=== PATIENT | male | born 1935 | race Caucasian/White ===

== ENCOUNTER 2017-04-23 16:41 | Inpatient (IN) | payer MEDICARE, OTHER ==
[~2017-04-23] VITALS: Ht 175.3 cm; Wt 96.8 kg
[~2017-04-23 16:41] MED LIST: ASPI-535 PO; BIMA2.5D4; BRIM10DR2; CRES10; FURO40TA4 PO; INSU100V19; LOSA100T47
[2017-04-23] MEDS ORDERED: ALBUTEROL 0.5% (NEB) 2.5 MG/0.5 ML AMP INH STA (19:19)
[2017-04-23 19:30] LABS: ADD SCAN DIFF NO
[2017-04-23] MEDS ORDERED: LEVOFLOXACIN 750MG/D5W (PMX) 150 ML IVPB ONE (19:30)
[2017-04-23] MEDS ORDERED: ASPIRIN 81 MG TAB PO ONE (19:30)
[2017-04-23] MEDS ORDERED: FUROSEMIDE 40 MG INJ IV ONE (19:30)
[2017-04-23 19:47] LABS: BASOPHIL # 0.1 10^3/ul (0.0-0.1); BASOPHILS % 0.6 % (0.0-2.0); EOSINOPHILS # 0.7 10^3/ul (0.0-0.5); EOSINOPHILS % 6.3 % (0.0-7.0); HEMATOCRIT 41.1 % (42.0-52.0); HEMOGLOBIN 12.8 g/dl (14.0-18.0); LYMPHOCYTES # 2.4 10^3/ul (0.8-2.9); LYMPHOCYTES % 22.9 % (15.0-51.0); MEAN CORPUSCULAR HGB CONC 31.1 g/dl (32.0-37.0); MEAN CORPUSCULAR VOLUME 102.8 fl (82.0-101.0); MEAN PLATELET VOLUME 12.9 fl (7.4-10.4); MONOCYTES % 9.2 % (0.0-11.0); NEUTROPHIL # 6.3 10^3/ul (1.6-7.5); NEUTROPHILS % 60.1 % (39.0-77.0); PLATELET COUNT 122 10^3/UL (140-415); WHITE BLOOD COUNT 10.5 10^3/ul (4.8-10.8)
[2017-04-23 20:04] LABS: ALANINE AMINOTRANSFERASE 34 IU/L (13-69); ALBUMIN 4.6 g/dl (3.3-4.9); ALBUMIN/GLOBULIN RATIO 1.21; ALKALINE PHOSPHATASE 28 IU/L (42-121); ANION GAP 17 (8-16); ASPARTATE AMINO TRANSFERASE 26 IU/L (15-46); BILIRUBIN,INDIRECT 0.4 mg/dl (0-1.1); BILIRUBIN,TOTAL 0.4 mg/dl (0.2-1.3); BLOOD UREA NITROGEN 57 mg/dl (7-20); CALCIUM 9.3 mg/dl (8.4-10.2); CARBON DIOXIDE 30 mmol/L (21-31); CHLORIDE 104 mmol/L (97-110); GLUCOSE 264 mg/dl (70-220); POTASSIUM 4.7 mmol/L (3.5-5.1); SODIUM 146 mmol/L (135-144); TOTAL PROTEIN 8.4 g/dl (6.1-8.1)
[2017-04-23 20:16] LABS: B-TYPE NATRIURETIC PEPTIDE 107 PG/ML (0-450)
[2017-04-23 20:16] LABS: ADD UMIC YES; UR ASCORBIC ACID NEGATIVE (NEGATIVE); UR BILIRUBIN (Dip) NEGATIVE (NEGATIVE); UR BLOOD (Dip) 1+ mg/dL (NEGATIVE); UR CLARITY CLEAR (CLEAR); UR COLOR STRAW (YELLOW); UR GLUCOSE (Dip) NEGATIVE (NEGATIVE); UR KETONES (Dip) NEGATIVE (NEGATIVE); UR LEUKOCYTE ESTERASE (Dip) NEGATIVE Leu/ul (NEGATIVE); UR NITRITE (Dip) NEGATIVE (NEGATIVE); UR RBC 2 /HPF (0-5); UR TOTAL PROTEIN (Dip) NEGATIVE (NEGATIVE); UR UROBILINOGEN (Dip) NEGATIVE (NEGATIVE)
[2017-04-23 20:22] LABS: TROPONIN-I < 0.012 ng/ml (0.00-0.12)
[2017-04-23 20:49] LABS: AADO2 Arterial 71.3 mmHg (7.0-24.0); Arterial Base Excess 1.1 mmol/L (-3.0-3); Arterial COHb 0.6 % (0.0-3.0); Arterial Fraction of Oxyhgb 94.1 % (93.0-99.0); Arterial HCO3 27.9 mmol/L (22.0-26.0); Arterial MetHb 0.2 % (0.0-1.5); Arterial Total Hemglobin 13.4 g/dl (12.0-18.0); MODE NASAL CANNULA
[2017-04-23] MEDS ORDERED: LATA2.5D2 BOTH EYES (21:22)
[2017-04-23] MEDS ORDERED: DORZ10DR22 BOTH EYES (21:23)
[2017-04-23] MEDS ORDERED: COMBIG5 BOTH EYES (21:23)
[2017-04-23] MEDS ORDERED: SPIR25TA PO (21:24)
[2017-04-23] MEDS ORDERED: ASPI-664 PO (21:27)
[2017-04-23] MEDS ORDERED: CRES10 PO (21:27)
[2017-04-23] MEDS ORDERED: LOSA1TAB20 PO (21:29)
[2017-04-23] MEDS ORDERED: METHYLPREDNISOLONE 125 MG INJ IV ONE (21:30)
[2017-04-23] MEDS ORDERED: LANT3I SC (21:31)
[2017-04-23] MEDS ORDERED: FURO40TA4 PO (21:32)
--- NOTE | 2017-04-23 21:38 | RADRPT ---
PROCEDURE: XR Chest. CLINICAL INDICATION: Cough. TECHNIQUE: Single frontal view of the chest was obtained. 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 I attempted to retrie ve views utilizing both the [employer] ([place]) and spoke with liz Gilbert technologgis who tried to hav e these uploaded. FINDINGS: The soft tissues are normal. There are degenerative osteophytes in the thoracic spine. There are c alcifications lateral to the humeral heads suspicious for calcific tendonitis involving both shoulde rs. The heart is enlarged. The cardiomediastinal silhouette and hilar structures are normal. The p ulmonary vasculature is equilibrated. There are vascular calcifications in the ectatic left-sided a aimee. There are increased interstitial markings in the perihilar areas and bases of the lungs. Ther e is slight thickening of the minor fissure. The costophrenic angles are normal. IMPRESSION: 1. Cardiomegaly with equilibration the pulmonary vasculature. 2. Increased interstitial markings in the lungs could be acute or chronic pain mild CHF should be c onsidered. 3. Spondylosis of the thoracic spine. 4. Atherosclerosis of the aortic arch. RPTAT:AAJJ Physician Misael Date Time Electronically viewed and signed by Physician Misael on 04/23/2017 21:38 ROHAN/
--- NOTE | 2017-04-23 22:04 | ERA ---
ER Documentation Chief Complaint Date/Time DATE: 04/23/17 TIME: 21:53 Chief Complaint Complains of a cough x 1week HPI 82-year-old man brought in by son for 1 week of cough, nasal congestion, rhinorrhea, shortness of breath. Was a longtime smoker and has a history of COPD. His younger family member has had similar URI symptoms this week. Patient states over the last couple weeks his lower extremities have been swelling as well, and he does have a history of pulmonary vascular congestion about a year ago. Patient has had no chest pain, no vomiting or diarrhea, no headache or blurry vision, no orthopnea or paroxysmal nocturnal dyspnea ROS All systems reviewed and are negative except as per history of present illness. Medications Home Meds Reported Medications Furosemide* (Furosemide*) 40 Mg Tablet, 40 MG PO DAILY, TAB 04/23/17 Insulin Glargine* (Lantus*) 100 Unit/Ml Soln, 42 UNIT SC QAM, #1 VIAL 04/23/17 Losartan-Hydrochlorothiazide (Losartan-HCTZ) 100-25 Mg Tab, 1 TAB PO DAILY, TAB 04/23/17 Aspirin* (Aspirin* EC) 81 Mg Tablet.dr, 81 MG PO DAILY, TAB 04/23/17 Rosuvastatin Calcium* (Crestor*) 10 Mg Tablet, 10 MG PO QHS, #30 TAB 04/23/17 Spironolactone* (Aldactone*) 25 Mg Tablet, 25 MG PO DAILY, #30 TAB 04/23/17 Brimonidine/Timolol* (Combigan*) 5 Ml Drops, 1 DROP BOTH EYES BID, BOTTLE 04/23/17 Dorzolamide-Timolol* (Cosopt*) 2%-0.5% - 10 Ml Soln, 1 DROP BOTH EYES BID, BOTTLE 04/23/17 Latanoprost (Latanoprost) 2.5 Ml Drops, 1 DROP BOTH EYES QHS, #1 BOTTLE 04/23/17 Discontinued Reported Medications Furosemide (Lasix) 40 Mg Tab, 40 MG PO EVERY OTHER DAY, TAB 12/25/13 Aspirin Ec (Aspir 81) 81 Mg Tablet.dr, 81 MG PO DAILY 12/25/13 Brimonidine/Timolol* (Combigan*) 10 Ml Drops 09/20/ Bimatoprost (Lumigan) 2.5 Ml Drops 09/20/10 Insulin Glargine,Hum.rec.anlog (Lantus) 100 U/Ml Vial 09/20/10 Losartan Potassium* (Cozaar*) 100 Mg Tablet 09/20/10 Rosuvastatin Calcium* (Crestor*) 10 Mg Tablet 09/20/10 Allergies Allergies: Coded Allergies: ceftriaxone sodium (Verified Allergy, Severe, 04/23/17) ITCHY RASH vancomycin (Verified Allergy, Severe, 04/23/17) REDNESS AND LOSS OF KIDNEY FUNCTION PMhx/Soc Hypertension, diabetes mellitus, hypercholesterolemia, chronic obstructive pulmonary disease, possible congestive heart failure History of Surgery: Yes (angioplasty, L LEG VEIN REMOVED, BILATERAL CATARACTS) Anesthesia Reaction: No Hx Neurological Disorder: No Hx Respiratory Disorders: Yes ( copd) Hx Cardiac Disorders: Yes (cad, mi in 1993, htn, hypercholesterolemia) Hx Psychiatric Problems: No Hx Miscellaneous Medical Probl: Yes (Dm,HTN,hyperlipidemia,CAD) Hx Alcohol Use: Yes (OCCASIONALLY) Hx Substance Use: No Hx Tobacco Use: No (former smoker; quit in 1993) Smoking Status: Former smoker FmHx Family History: No diabetes Physical Exam Vitals Vital Signs Date Time Temp Pulse Resp B/P Pulse Ox O2 Delivery O2 Flow Rate FiO2 04/23/17 21:46 72 16 138/69 95 Nasal Cannula 2.0 04/23/17 19:17 71 22 145/79 95 Nasal Cannula 2.0 04/23/17 19:15 69 26 93 Nasal Cannula 2.0 28 04/23/17 16:44 98.3 80 20 134/60 86 Physical Exam GENERAL: Well-developed, well-nourished, dyspneic, initially hypoxic, looks nontoxic in appearance, afebrile HEENT: Moist mucous membranes, pink conjunctiva, no cervical spine tenderness or step-off deformities, no goiter, no jaundice or icterus, extraocular movements intact without pain. No submandibular induration, and no pharyngeal erythema NEURO: Alert and oriented 3, cranial nerves II through XII intact bilaterally, pupils equal round reactive to light, no focal deficits or facial asymmetry, sensation intact distally Strength 5/5 in upper and lower extremities bilaterally CARDIAC: Regular rate and rhythm, no murmurs rubs or gallops LUNGS: Poor breath sounds bilaterally with right upper and lower lung crackles, mild wheezing, no stridor ABDOMEN: Soft nontender, no guarding, no rigidity, no rebound, no psoas sign no obturator sign. Normoactive bowel sounds SKIN: Warm and dry to touch, no abrasions, contusions, or hematomas, no lacerations, no ecchymosis, no target lesions, and without ulcers EXTREMITIES: No clubbing cyanosis, 2+ pitting edema in the lower extremities bilaterally, calves are bilaterally symmetrical, no Homans sign, no popliteal cord sign. Distal pulses equal and bilateral PSYCH: Normal affect without agitation or irritability Result Diagram: 04/23/17191404/23/171914 Results 24 hrs Laboratory Tests Test 04/23/17 19:15 04/23/17 19:19 04/23/17 19:56 White Blood Count 10.510^3/ul Red Blood Count 4.0010^6/ul Hemoglobin 12.8g/dl Hematocrit 41.1% Mean Corpuscular Volume 102.8fl Mean Corpuscular Hemoglobin 32.0pg Mean Corpuscular Hemoglobin Concent 31.1g/dl Red Cell Distribution Width 13.0% Platelet Count 77020^3/UL Mean Platelet Volume 12.9fl Neutrophils % 60.1% Lymphocytes % 22.9% Monocytes % 9.2% Eosinophils % 6.3% Basophils % 0.6% Nucleated Red Blood Cells % 0.0/100WBC Neutrophils # 6.310^3/ul Lymphocytes # 2.410^3/ul Monocytes # 1.010^3/ul Eosinophils # 0.710^3/ul Basophils # 0.110^3/ul Nucleated Red Blood Cells # 0.010^3/ul Sodium Level 146mmol/L Potassium Level 4.7mmol/L Chloride Level 104mmol/L Carbon Dioxide Level 30mmol/L Anion Gap 17 Blood Urea Nitrogen 57mg/dl Creatinine 2.10mg/dl Glucose Level 264mg/dl Calcium Level 9.3mg/dl Total Bilirubin 0.4mg/dl Direct Bilirubin 0.00mg/dl Indirect Bilirubin 0.4mg/dl Aspartate Amino Transf (AST/SGOT) 26IU/L Alanine Aminotransferase (ALT/SGPT) 34IU/L Alkaline Phosphatase 28IU/L Troponin I < 0.012ng/ml B-Type Natriuretic Peptide 107PG/ML Total Protein 8.4g/dl Albumin 4.6g/dl Globulin 3.80g/dl Albumin/Globulin Ratio 1.21 Lipase 123U/L Blood Gas Specimen Source Blood arterial Arterial Blood Date Drawn 04/23/2017 8:35:03 PM Arterial Blood pH (Temp corrected) 7.336 Arterial Blood pCO2 (Temp correct) 53.4mmhg Arterial Blood pO2 (Temp corrected) 79.9mmHG Arterial Blood HCO3 27.9mmol/L Arterial Blood Base Excess 1.1mmol/L Arterial Blood Oxygen Saturation 94.9mmHG Lux Test N/A Arterial Blood Gas Puncture Site Right Brachial Arterial Blood Carboxyhemoglobin 0.6% Arterial Blood Methemoglobin 0.2% Blood Gas A-a O2 Differential 71.3mmHg Oxyhemoglobin Percent 94.1% Total Hemoglobin 13.4g/dl Blood Gas Temperature 37.0C Blood Gas Actual Respiration Rate 24 Blood Gas Modality NASAL CANNULA FiO2 30.0% Blood Gas Critical Value Read Back Juan KIDD Blood Gas Notified Whom BL Blood Gas Notified Time 04/23/2017 8:49:24 PM Urine Color STRAW Urine Clarity CLEAR Urine pH 5.0 Urine Specific [place] 1.010 Urine Ketones NEGATIVEmg/dL Urine Nitrite NEGATIVEmg/dL Urine Bilirubin NEGATIVEmg/dL Urine Urobilinogen NEGATIVEmg/dL Urine Leukocyte Esterase NEGATIVELeu/ul Urine Microscopic RBC 2/HPF Urine Microscopic WBC 1/HPF Urine Hemoglobin 1+mg/dL Urine Glucose NEGATIVEmg/dL Urine Total Protein NEGATIVEmg/dl Current Medications Medications (Trade) Dose Ordered Sig/Linnette Route PRN Reason Start Time Stop Time Status Last Admin Dose Admin Furosemide (Lasix) 40 mg ONCE ONCE IV 04/23/17 19:30 04/23/17 19:31 DC 04/23/17 19:38 Aspirin 324 mg 324 mg ONCE ONCE PO 04/23/17 19:30 04/23/17 19:31 DC 04/23/17 19:38 Levofloxacin/ Dextrose (Levaquin 750 Mg/ D5W 150 ml (Pmx)) 150 ml @ 100 mls/hr ONCE ONCE IVPB 04/23/17 19:30 04/23/17 20:59 DC 04/23/17 19:38 Albuterol (Proventil 0.5% (Neb)) 10 mg ONCE STAT INH 04/23/17 19:19 04/23/17 19:22 DC 04/23/17 19:31 Methylprednisolone Sodium Succinate (Solu-Medrol) 125 mg ONCE ONCE IV 04/23/17 21:30 04/23/17 21:31 DC 04/23/17 21:46 Procedures/MDM IV line was established patient was placed on electric solderer rhythm strip revealed a sinus rhythm at about 70 bpm with upright P and T waves. Patient was afebrile. Blood and urine cultures have been ordered results are pending I will follow-up. For initial hypoxia patient was placed on low flow oxygen via nasal cannula with improvement in oxygen saturation. EKG performed, read by me revealed a normal sinus rhythm at 70 bpm, left axis deviation, and a right bundle branch block, QRS duration 122 ms, no concerning ST elevations or depressions noted One view chest x-ray performed, read by me there are atelectatic changes bilaterally and a right upper lobe infiltrate, no pneumothorax, no end of the diaphragm. I administered albuterol 10 mg via nebulizer, methylprednisolone 125 mg IV. Patient also received aspirin 324 mg p.o. for cardioprotective measures. Given the patient's recent cough and medical conditions I also treated him here with levofloxacin 750 mg IV 1 ABG post treatment revealed a pH of 7.34, PCO2 53, PO2 80 revealing mild respiratory acidosis consistent with history and presentation. CBC was unremarkable, electrolytes revealed dehydration and renal insufficiency with a BUN/creatinine of 57/2.1, liver function tests are normal, troponin was negative, BNP was low. Influenza AB swabs were negative Critical Care: Time: 37 minutes, this was time separate from other billable procedures. Treatments/Evaluations: Close monitoring and treatment of unstable vital signs, cardiorespiratory, and neurologic status, while maintaining tight balance of fluid, respiratory, and cardiac interventions. I do not suspect sepsis or septic shock. Patient will be admitted to telemetry setting for continued medical management, antibiotics, and bronchodilator therapy. Departure Diagnosis: Primary Impression: COPD (chronic obstructive pulmonary disease) Qualified Code: J44.1 - Chronic obstructive pulmonary disease with acute exacerbation Additional Impressions: Pneumonia Qualified Code: J18.9 - Pneumonia of right lung due to infectious organism, unspecified part of lung Acute kidney injury Dehydration Peripheral edema Respiratory acidosis Condition: LUNA Lucio MD Apr 23, 2017 22:04
[2017-04-23] MEDS ORDERED: SOD CHLORIDE 0.9% 1,000 ML IV ONE (22:30)
[2017-04-23 23:08] VITALS: PULSE 77
[2017-04-23 23:22] VITALS: Ht 175.3 cm; Wt 96.8 kg
[2017-04-23 23:31] VITALS: BP 147/69; RESP 19
[2017-04-24] VITALS (13 sets, daily range): BP systolic 108–136; BP diastolic 53–66; PULSE 65–78; RESP 18–19
[2017-04-24] MEDS ORDERED: HYDROCODONE/APAP (5/325) TAB PO PRN (00:30)
[2017-04-24] MEDS ORDERED: DOCUSATE SODIUM 100 MG CAP PO PRN (00:30)
[2017-04-24] MEDS ORDERED: morphine 2 MG INJ IV PRN (00:30)
[2017-04-24] MEDS ORDERED: NACL 0.9% 3 ML SYG IV SCH (00:30)
[2017-04-24] MEDS ORDERED: CEFTRIAXONE 1 GM/50 ML (PMX) 50 ML IVPB SCH (00:30)
[2017-04-24] MEDS ORDERED: ONDANSETRON 4 MG INJ IV PRN (00:30)
[2017-04-24] MEDS ORDERED: ZOLPIDEM 5 MG TAB PO PRN (00:30)
[2017-04-24] MEDS ORDERED: ACETAMINOPHEN 325 MG TAB PO PRN (00:30)
[2017-04-24] MEDS: SOD CHLORIDE 0.45% 1,000 ML IV SCH ×2 (00:31→10:44)
[2017-04-24] MEDS ORDERED: GLUCOSE GEL 15 GRAM TUBE PO PRN ×2 (01:00)
[2017-04-24] MEDS ORDERED: GLUCOSE GEL 15 GRAM TUBE BUCCAL PRN (01:00)
[2017-04-24] MEDS ORDERED: GLUCAGON 1 MG INJ IM PRN (01:00)
[2017-04-24] MEDS ORDERED: DEXTROSE 50% 50 ML SYRINGE IV PRN ×2 (01:00)
[2017-04-24] MEDS ORDERED: AZITHROMYCIN 500MG/NS (PMX) 250 ML IVPB SCH (01:00)
[2017-04-24] MEDS: ACCU-CHEK XX SCH (02:31)
--- NOTE | 2017-04-24 06:20 | HP ---
DATE OF ADMISSION: 04/23/2017 TIME: 11:45 p.m. CHIEF COMPLAINT: Cough and shortness of breath. HISTORY OF PRESENT ILLNESS: The patient is an 82-year-old male with a history of COPD, hypertension , insulin-dependent diabetes, and glaucoma. The patient presents with 1 week of a cough, with upper respiratory symptoms and shortness of breath. The patient is not on any bronchial inhalers. The shona mistry's grandson had a URI recently. The patient denies any travel history. He has no history of any heart failure. No history of any coronary artery disease or strokes. The patient has no other complaints. He denies any chest pain, nausea, vomiting or diarrhea. PAST MEDICAL HISTORY: COPD, insulin-requiring diabetes, hypertension, glaucoma. ALLERGIES: 1. ROCEPHIN. 2. VANCOMYCIN. FAMILY HISTORY: Denies. SOCIAL HISTORY: Denies any current alcohol, tobacco or substance abuse. The patient was a former s moker, smoked for many years, but quit in 1993. REVIEW OF SYSTEMS: A 12-point review of systems was negative except for that discussed in the HPI. PHYSICAL EXAMINATION: VITAL SIGNS: Temperature is 98.0, pulse 65, respiratory rate 19, BP is 147/65, saturations of 98% o n 2 liters. GENERAL: In no acute distress, alert and oriented. HEENT: Normocephalic, atraumatic. CHEST: Clear to auscultation. CARDIOVASCULAR: Regular rate and rhythm. ABDOMEN: Nondistended, nontender, soft. EXTREMITIES: No clubbing, cyanosis, or edema. LABORATORY: White count 7.5, hemoglobin 12.8, platelets of 122. Chemistry: Sodium is 146, creatin ine is 2.10, glucose 264, BUN is 57, anion gap is 17, glucose 122. Urine within normal limits. DIAGNOSTICS: Chest x-ray, cardiomegaly with equilibration of pulmonary vasculature. Increased inte rstitial markings in the lungs. Spondylosis of the thoracic spine. Atherosclerosis of the aortic a [facility]. ASSESSMENT AND PLAN: 1. Acute respiratory distress, likely secondary to upper respiratory infection, with possible bronc hial pneumonia. Will treat with Levaquin IV. Will continue supplemental oxygen. 2. Acute on likely chronic kidney disease. The patient's last known creatinine was around 1.10 in 2009, but he did have a creatinine of 1.9 several days prior. The patient likely has underlying CKD , with possible progression. His last creatinine known was 7 years ago. The patient may have an ac tiesha component of dehydration. Will treat with IV fluids. 3. Hyponatremia, likely from dehydration. Once again, will treat with IV fluids. 4. Hypertension. Continue home medications. 5. Diabetes. Continue insulin. 6. Glaucoma. Continue home medications. 7. Dyslipidemia. Continue Crestor. 8. Prophylaxis. SCDs. Dictated By: VISHNU MOON MD BS/NTS Conf#: [id number] DID#: [id number]
[2017-04-24] MEDS: ASPIRIN (EC) 81 MG TAB PO SCH (08:21)
[2017-04-24] MEDS: SPIRONOLACTONE 25 MG TAB PO SCH (08:21)
[2017-04-24] MEDS: DORZOLAMIDE/TIMOLOL 10 ML OPH BOTH EYES SCH ×2 (08:22→20:45)
[2017-04-24] MEDS: BRIMONIDINE 0.2%-TIMOLOL 0.5% 5ML OPH BOTH EYES SCH ×2 (08:23→20:44)
[2017-04-24] MEDS: INSULIN GLARGINE [LANtus] 3 ML PEN SC SCH (08:36)
[2017-04-24] MEDS ORDERED: LOSARTAN 50 MG TAB PO SCH (09:00)
[2017-04-24] MEDS ORDERED: HYDROCHLOROTHIAZIDE 25 MG TAB PO SCH (09:00)
[2017-04-24] MEDS: INSULIN ASPART [NOVOLOG] 3 ML PEN SC SCH ×4 (09:15→20:50)
[2017-04-24] MEDS ORDERED: FUROSEMIDE 20 MG INJ IV ONE (12:30)
[2017-04-24] MEDS ORDERED: ALBUTEROL/IPRATROPIUM (NEB) 3 ML AMP HHN PRN (12:30)
[2017-04-24] MEDS ORDERED: PROMETHAZINE/CODEINE 5ML CUP PO PRN (12:30)
[2017-04-24] MEDS ORDERED: PROMETHAZINE/CODEINE 5ML CUP PO ONE (12:30)
--- NOTE | 2017-04-24 12:31 | PN ---
Date/Time of Note Date/Time of Note DATE: 04/24/17 TIME: 12:28 Assessment/Plan VTE Prophylaxis VTE Prophylaxis Intervention: SCD's Lines/Catheters IV Catheter Type (from Nrs): Peripheral IV Urinary Cath still in place: No Assessment/Plan Assessment/Plan 1. Acute respiratory distress 2/2 bilateral PNA and COPD exacerbatin 2. acute COPD Exacerbation 3. rule out diastolic heart failure 2. NIRMALA on CKD III 3. Hyponatremia 4. Hypertension. Continue home medications. 5. Diabetes. Continue insulin. 6. Glaucoma. Continue home medications. 7. Dyslipidemia. Continue Crestor. 8. Prophylaxis. SCDs. Plan; D/c HCTZ, d/c losartan now( Cr elevated, cough), continue spironolactone at this time now IV solumedrol 20mg Q 8 hr Duoneb Q 6 hr ATC and Q 2 hr prn SOB IV lasix 20mg BID Codeine/promethazine cough syrup cardiology consutl , ECHO has been ordered on patient Subjective 24 Hr Interval Summary Free Text/Dictation sob, cough, wheezing a lot, getting IV fluids Exam/Review of Systems Vital Signs Vitals Vital Signs Date Time Temp Pulse Resp B/P Pulse Ox O2 Delivery O2 Flow Rate FiO2 04/24/17 12:05 66 04/24/17 11:25 97.8 18 108/62 97 04/24/17 08:10 Nasal Cannula 2.0 04/23/17 19:15 28 Intake and Output 04/23/17 04/23/17 04/24/17 15:00 23:00 07:00 Intake Total 700 ml Balance 700 ml Exam GENERAL: In no acute distress, alert and oriented. HEENT: Normocephalic, atraumatic. CHEST: bilateral basilar crackles, + wheezing CARDIOVASCULAR: Regular rate and rhythm. ABDOMEN: Nondistended, nontender, soft. EXTREMITIES: No clubbing, cyanosis, or edema. Results Result Diagram: 04/23/17191404/23/171914 Results 24 hrs Laboratory Tests Test 04/23/17 19:15 04/23/17 19:19 04/23/17 19:56 04/24/17 00:20 White Blood Count 10.5 Red Blood Count 4.00 L Hemoglobin 12.8 L Hematocrit 41.1 L Mean Corpuscular Volume 102.8 H Mean Corpuscular Hemoglobin 32.0 Mean Corpuscular Hemoglobin Concent 31.1 L Red Cell Distribution Width 13.0 Platelet Count 122 L Mean Platelet Volume 12.9 H Neutrophils % 60.1 Lymphocytes % 22.9 Monocytes % 9.2 Eosinophils % 6.3 Basophils % 0.6 Nucleated Red Blood Cells % 0.0 Neutrophils # 6.3 Lymphocytes # 2.4 Monocytes # 1.0 H Eosinophils # 0.7 H Basophils # 0.1 Nucleated Red Blood Cells # 0.0 Sodium Level 146 H Potassium Level 4.7 Chloride Level 104 Carbon Dioxide Level 30 Anion Gap 17 H Blood Urea Nitrogen 57 H Creatinine 2.10 H Glucose Level 264 H Calcium Level 9.3 Total Bilirubin 0.4 Direct Bilirubin 0.00 Indirect Bilirubin 0.4 Aspartate Amino Transf (AST/SGOT) 26 Alanine Aminotransferase (ALT/SGPT) 34 Alkaline Phosphatase 28 L Troponin I < 0.012 B-Type Natriuretic Peptide 107 Total Protein 8.4 H Albumin 4.6 Globulin 3.80 H Albumin/Globulin Ratio 1.21 Lipase 123 Blood Gas Specimen Source Blood arterial Arterial Blood Date Drawn 04/23/2017 8:35:03 PM Arterial Blood pH (Temp corrected) 7.336 L Arterial Blood pCO2 (Temp correct) 53.4 H Arterial Blood pO2 (Temp corrected) 79.9 L Arterial Blood HCO3 27.9 H Arterial Blood Base Excess 1.1 Arterial Blood Oxygen Saturation 94.9 L Lux Test N/A Arterial Blood Gas Puncture Site Right Brachial Arterial Blood Carboxyhemoglobin 0.6 Arterial Blood Methemoglobin 0.2 Blood Gas A-a O2 Differential 71.3 H Oxyhemoglobin Percent 94.1 Total Hemoglobin 13.4 Blood Gas Temperature 37.0 Blood Gas Actual Respiration Rate 24 Blood Gas Modality NASAL CANNULA FiO2 30.0 Blood Gas Critical Value Read Back Juan KIDD Blood Gas Notified Whom BL Blood Gas Notified Time 04/23/2017 8:49:24 PM Urine Color STRAW Urine Clarity CLEAR Urine pH 5.0 Urine Specific [place] 1.010 Urine Ketones NEGATIVE Urine Nitrite NEGATIVE Urine Bilirubin NEGATIVE Urine Urobilinogen NEGATIVE Urine Leukocyte Esterase NEGATIVE Urine Microscopic RBC 2 Urine Microscopic WBC 1 Urine Hemoglobin 1+ H Urine Glucose NEGATIVE Urine Total Protein NEGATIVE Bedside Glucose 122 Test 04/24/17 02:30 04/24/17 08:09 04/24/17 09:06 04/24/17 12:10 Bedside Glucose 141 202 233 H 279 H Medications Medications Current Medications Sodium Chloride (1/2 NS) 1,000 ml @ 100 mls/hr Q10H IV Last administered on 10:44; Admin Dose 100 MLS/HR; Start 04/24/17 at 00:10 Ondansetron HCl (Zofran Inj) 4 mg Q6H PRN IV NAUSEA AND/OR VOMITING; Start at 00:30 Acetaminophen (Tylenol Tab) 650 mg Q6H PRN PO PAIN LEVEL 1-3 OR FEVER; Start at 00:30 Acetaminophen/ Hydrocodone Bitart ([place] (5/325)) 1 tab Q6H PRN PO MODERATE PAIN LEVEL 4-6; Start 04/24/17 at 00:30 Morphine Sulfate (morphine) 2 mg Q4H PRN IV SEVERE PAIN LEVEL 7-10; Start 04/24 at 00:30 Docusate Sodium (Colace) 100 mg Q12H PRN PO CONSTIPATION; Start 04/24/17 at 00: 30 Zolpidem Tartrate (Ambien) 5 mg QHS PRN PO SLEEP; Start 04/24/17 at 00:30 Aspirin (Halfprin) 81 mg DAILY PO Last administered on 04/24/17 08:21; Admin Dose 81 MG; Start 04/24/17 at 09:00 Brimonidine/ Timolol (Combigan Oph) 1 drop BID BOTH EYES Last administered on 08:23; Admin Dose 1 DROP; Start 04/24/17 at 09:00 Dorzolamide/ Timolol (Cosopt) 1 drop BID BOTH EYES Last administered on 08:22; Admin Dose 1 DROP; Start 04/24/17 at 09:00 Insulin Glargine (Lantus) 42 unit QAM SC Last administered on 04/24/17 08:36; Admin Dose 42 UNIT; Start 04/24/17 at 09:00 Latanoprost (Xalatan) 1 drop QHS BOTH EYES ; Start 04/24/17 at 21:00 Spironolactone (Aldactone) 25 mg DAILY PO Last administered on 04/24/17 08:21 ; Admin Dose 25 MG; Start 04/24/17 at 09:00 Atorvastatin Calcium 40 mg 40 mg DAILY@21 PO ; Start 04/24/17 at 21:00 Levofloxacin/ Dextrose (Levaquin 750 Mg/ D5W 150 ml (Pmx)) 150 ml @ 100 mls/hr Q48H IVPB ; Start 04/25/17 at 20:00 Diagnostic Test (Pha) (Accu-Chek) 1 ea 02 XX Last administered on 04/24/17t 02: 31; Admin Dose 1 EA; Start 04/24/17 at 02:00 Miscellaneous Information 1 ea NOTE XX ; Start 04/24/17 at 01:00 Glucose (Glutose) 15 gm Q15M PRN PO DECREASED GLUCOSE; Start 04/24/17 at 01:00 Glucose (Glutose) 22.5 gm Q15M PRN PO DECREASED GLUCOSE; Start 04/24/17 at 01: 00 Dextrose (D50w Syringe) 25 ml Q15M PRN IV DECREASED GLUCOSE; Start 04/24/17 at 01:00 Dextrose (D50w Syringe) 50 ml Q15M PRN IV DECREASED GLUCOSE; Start 04/24/17 at 01:00 Glucagon (Glucagen) 1 mg Q15M PRN IM DECREASED GLUCOSE; Start 04/24/17 at 01:00 Glucose (Glutose) 15 gm Q15M PRN BUCCAL DECREASED GLUCOSE; Start 04/24/17 at 01 :00 Furosemide (Lasix) 20 mg ONCE ONCE IV ; Start 04/24/17 at 12:30; Stop 04/24/17 at 12:31 Furosemide (Lasix) 20 mg DAILY IV ; Start 04/25/17 at 09:00; Status UNV Promethazine HCl/ Codeine (Phenergan/ Codeine) 5 ml ONCE ONCE PO ; Start at 12:30; Stop 04/24/17 at 12:31 Promethazine HCl/ Codeine (Phenergan/ Codeine) 5 ml Q4H PRN PO COUGH; Start at 12:30 RO BROOKS MD Apr 24, 2017 12:31
[2017-04-24] MEDS: METHYLPREDNISOLONE 40 MG INJ IV SCH ×2 (13:09→21:59)
[2017-04-24] MEDS: ALBUTEROL/IPRATROPIUM (NEB) 3 ML AMP HHN SCH ×2 (16:03→20:50)
[2017-04-24] MEDS ORDERED: INSULIN ASPART [NOVOLOG] 3 ML PEN SC SCH (17:55)
[2017-04-24] MEDS: LATANOPROST 0.005% 2.5 ML OPH BOTH EYES SCH (20:35)
[2017-04-24] MEDS: ATORVASTATIN 40 MG TAB PO SCH (20:35)
[2017-04-25] VITALS (14 sets, daily range): BP systolic 93–112; BP diastolic 47–61; PULSE 59–67; RESP 17–18
[2017-04-25] MEDS: ALBUTEROL/IPRATROPIUM (NEB) 3 ML AMP HHN SCH ×4 (01:29→20:08)
[2017-04-25] MEDS: ACCU-CHEK XX SCH (02:02)
[2017-04-25] MEDS: METHYLPREDNISOLONE 40 MG INJ IV SCH ×3 (06:19→22:07)
[2017-04-25] MEDS: FUROSEMIDE 20 MG INJ IV SCH (06:21)
[2017-04-25 06:32] LABS: ADD SCAN DIFF NO
[2017-04-25 06:42] LABS: ABNORMAL IP MESSAGE 1; BASOPHILS % 0.2 % (0.0-2.0); HEMATOCRIT 39.9 % (42.0-52.0); HEMOGLOBIN 12.8 g/dl (14.0-18.0); LYMPHOCYTES # 1.7 10^3/ul (0.8-2.9); LYMPHOCYTES % 7.1 % (15.0-51.0); MEAN CORPUSCULAR HEMOGLOBIN 32.5 pg (29.0-33.0); MEAN CORPUSCULAR HGB CONC 32.1 g/dl (32.0-37.0); MEAN CORPUSCULAR VOLUME 101.3 fl (82.0-101.0); MEAN PLATELET VOLUME 12.7 fl (7.4-10.4); MONOCYTE # 0.9 10^3/ul (0.3-0.9); MONOCYTES % 3.6 % (0.0-11.0); NEUTROPHIL # 20.9 10^3/ul (1.6-7.5); NEUTROPHILS % 87.8 % (39.0-77.0); PLATELET COUNT 139 10^3/UL (140-415); RED BLOOD COUNT 3.94 10^6/ul (4.70-6.10); RED CELL DISTRIBUTION WIDTH 12.6 % (11.5-14.5); WHITE BLOOD COUNT 23.9 10^3/ul (4.8-10.8)
[2017-04-25 07:10] LABS: CREATININE 1.96 mg/dl (0.61-1.24); MAGNESIUM 2.5 mg/dl (1.7-2.5); PHOSPHORUS 4.8 mg/dl (2.5-4.9); POTASSIUM 4.6 mmol/L (3.5-5.1)
[2017-04-25] MEDS: INSULIN ASPART [NOVOLOG] 3 ML PEN SC SCH ×7 (07:53→20:48)
[2017-04-25] MEDS: INSULIN GLARGINE [LANtus] 3 ML PEN SC SCH (07:53)
[2017-04-25] MEDS: ASPIRIN (EC) 81 MG TAB PO SCH (08:09)
[2017-04-25] MEDS: BRIMONIDINE 0.2%-TIMOLOL 0.5% 5ML OPH BOTH EYES SCH ×2 (08:09→20:39)
[2017-04-25] MEDS: SPIRONOLACTONE 25 MG TAB PO SCH (08:09)
[2017-04-25] MEDS: DORZOLAMIDE/TIMOLOL 10 ML OPH BOTH EYES SCH ×2 (08:09→20:40)
--- NOTE | 2017-04-25 10:19 | RADRPT ---
PROCEDURE: XR Chest. CLINICAL INDICATION: Shortness of breath. Cough TECHNIQUE: A single portable view of the chest was obtained. COMPARISON: 04/23/2017 FINDINGS: The aorta is tortuous and atherosclerotic. The cardiomediastinal silhouette is otherwise mildly enl arged and is unchanged. Diffuse interstitial markings are once again seen and is stable. No dense co nsolidation or pleural effusion is seen. The soft tissues and osseous structures demonstrate benign age related senescent changes. IMPRESSION: Diffuse interstitial markings again seen which has not changed significantly. RPTAT: HPNM Physician Nina Date Time Electronically viewed and signed by Physician Nina on 04/25/2017 10:19 /
--- NOTE | 2017-04-25 14:02 | PN ---
Date/Time of Note Date/Time of Note DATE: 04/25/17 TIME: 13:59 Assessment/Plan VTE Prophylaxis VTE Prophylaxis Intervention: SCD's Lines/Catheters IV Catheter Type (from [facility]): Saline Lock Urinary Cath still in place: No Assessment/Plan Chief Complaint/Hosp Course Assessment/Plan: 82 M with: 1. Acute respiratory distress 2/2 bilateral PNA and COPD exacerbation - slowly improving. 2. acute COPD Exacerbation 3. rule out diastolic heart failure 2. NIRMALA on CKD III 3. Hyponatremia 4. Hypertension. Continue home medications. 5. Diabetes. Continue insulin. 6. Glaucoma. Continue home medications. 7. Dyslipidemia. Continue Crestor. 8. Prophylaxis. SCDs. Plan; have d/c'ed HCTZ, d/c losartan(Cr elevated, cough), continue spironolactone at this time now IV solumedrol 20mg Q 8 hr Duoneb Q 6 hr ATC and Q 2 hr prn SOB IV lasix 20mg BID Codeine/promethazine cough syrup cardiology consult officially still pending, ECHO has been ordered on patient - results pending Problems: Subjective 24 Hr Interval Summary Free Text/Dictation Pt with less SOB, less cough. Exam/Review of Systems Vital Signs Vitals Vital Signs Date Time Temp Pulse Resp B/P Pulse Ox O2 Delivery O2 Flow Rate FiO2 04/25/17 13:54 2.0 04/25/17 12:07 61 04/25/17 11:31 97.5 18 93/47 96 04/25/17 08:43 Nasal Cannula 04/24/17 16:07 28 Intake and Output 04/24/17 04/24/17 04/25/17 15:00 23:00 07:00 Intake Total 1400 ml 400 ml Output Total 2400 ml Balance -1000 ml 400 ml Exam GENERAL: In no acute distress, alert and oriented. HEENT: Normocephalic, atraumatic. CHEST: minimal wheezes, less crackles B/L CARDIOVASCULAR: Regular rate and rhythm. ABDOMEN: Nondistended, nontender, soft. EXTREMITIES: No clubbing, cyanosis, or edema. Results Result Diagram: 04/25/17 0555 04/25/17 0555 Results 24 hrs Laboratory Tests Test 04/24/17 17:22 04/24/17 20:39 04/25/17 01:32 04/25/17 05:55 Bedside Glucose 237 H 254 H 167 White Blood Count 23.9 #H Red Blood Count 3.94 L Hemoglobin 12.8 L Hematocrit 39.9 L Mean Corpuscular Volume 101.3 H Mean Corpuscular Hemoglobin 32.5 Mean Corpuscular Hemoglobin Concent 32.1 Red Cell Distribution Width 12.6 Platelet Count 139 L Mean Platelet Volume 12.7 H Neutrophils % 87.8 H Lymphocytes % 7.1 L Monocytes % 3.6 Eosinophils % 0.0 Basophils % 0.2 Nucleated Red Blood Cells % 0.0 Neutrophils # 20.9 H Lymphocytes # 1.7 Monocytes # 0.9 Eosinophils # 0.0 Basophils # 0.0 Nucleated Red Blood Cells # 0.0 Sodium Level 141 Potassium Level 4.6 Chloride Level 101 Carbon Dioxide Level 31 Anion Gap 14 Blood Urea Nitrogen 64 H Creatinine 1.96 H Glucose Level 185 Hemoglobin A1c 7.8 H Calcium Level 9.0 Phosphorus Level 4.8 Magnesium Level 2.5 Test 04/25/17 07:51 04/25/17 12:04 Bedside Glucose 164 248 H Medications Medications Current Medications Ondansetron HCl (Zofran Inj) 4 mg Q6H PRN IV NAUSEA AND/OR VOMITING; Start at 00:30 Acetaminophen (Tylenol Tab) 650 mg Q6H PRN PO PAIN LEVEL 1-3 OR FEVER; Start at 00:30 Acetaminophen/ Hydrocodone Bitart ([place] (5/325)) 1 tab Q6H PRN PO MODERATE PAIN LEVEL 4-6; Start 04/24/17 at 00:30 Morphine Sulfate (morphine) 2 mg Q4H PRN IV SEVERE PAIN LEVEL 7-10; Start 04/24 at 00:30 Docusate Sodium (Colace) 100 mg Q12H PRN PO CONSTIPATION; Start 04/24/17 at 00: 30 Zolpidem Tartrate (Ambien) 5 mg QHS PRN PO SLEEP; Start 04/24/17 at 00:30 Aspirin (Halfprin) 81 mg DAILY PO Last administered on 04/25/17 08:09; Admin Dose 81 MG; Start 04/24/17 at 09:00 Brimonidine/ Timolol (Combigan Oph) 1 drop BID BOTH EYES Last administered on 08:09; Admin Dose 1 DROP; Start 04/24/17 at 09:00 Dorzolamide/ Timolol (Cosopt) 1 drop BID BOTH EYES Last administered on 08:09; Admin Dose 1 DROP; Start 04/24/17 at 09:00 Insulin Glargine (Lantus) 42 unit QAM SC Last administered on 04/25/17 07:53; Admin Dose 42 UNIT; Start 04/24/17 at 09:00 Latanoprost (Xalatan) 1 drop QHS BOTH EYES Last administered on 04/24/17 20:35 ; Admin Dose 1 DROP; Start 04/24/17 at 21:00 Spironolactone (Aldactone) 25 mg DAILY PO Last administered on 04/25/17 08:09 ; Admin Dose 25 MG; Start 04/24/17 at 09:00 Atorvastatin Calcium 40 mg 40 mg DAILY@21 PO Last administered on 04/24/17 20: 35; Admin Dose 40 MG; Start 04/24/17 at 21:00 Levofloxacin/ Dextrose (Levaquin 750 Mg/ D5W 150 ml (Pmx)) 150 ml @ 100 mls/hr Q48H IVPB ; Start 04/25/17 at 20:00 Diagnostic Test (Pha) (Accu-Chek) 1 ea 02 XX Last administered on 04/25/17 02: 02; Admin Dose 1 EA; Start 04/24/17 at 02:00 Miscellaneous Information 1 ea NOTE XX ; Start 04/24/17 at 01:00 Glucose (Glutose) 15 gm Q15M PRN PO DECREASED GLUCOSE; Start 04/24/17 at 01:00 Glucose (Glutose) 22.5 gm Q15M PRN PO DECREASED GLUCOSE; Start 04/24/17 at 01: 00 Dextrose (D50w Syringe) 25 ml Q15M PRN IV DECREASED GLUCOSE; Start 04/24/17 at 01:00 Dextrose (D50w Syringe) 50 ml Q15M PRN IV DECREASED GLUCOSE; Start 04/24/17 at 01:00 Glucagon (Glucagen) 1 mg Q15M PRN IM DECREASED GLUCOSE; Start 04/24/17 at 01:00 Glucose (Glutose) 15 gm Q15M PRN BUCCAL DECREASED GLUCOSE; Start 04/24/17 at 01 :00 Furosemide (Lasix) 20 mg DAILY@06 IV Last administered on 04/25/17 06:21; Admin Dose 20 MG; Start 04/25/17 at 06:00 Promethazine HCl/ Codeine (Phenergan/ Codeine) 5 ml Q4H PRN PO COUGH; Start at 12:30 Methylprednisolone Sodium Succinate (Solu-Medrol) 20 mg Q8 IV Last administered on 04/25/17 13:30; Admin Dose 20 MG; Start 04/24/17 at 14:00 LEE ANN HOBBS Apr 25, 2017 14:02
--- NOTE | 2017-04-25 15:57 | RADRPT ---
Echocardiogram Report Patient Name: KAIA SUGGS Gender: Male Date: 1935 Study Date: 24-Apr-2017 Production Planning Manager: LETIICA Location: I Ref. Physician: RO BROOKS Quality: Adequate Procedures: Transthoracic echocardiogram with complete 2D, M-Mode, and Doppler examination. Indications: Congestive Heart Failure. 2D/M Mode Doppler Measurement Value Normal Ranges Measurement Value Normal Ranges AoR Diam MM 3.6 cm AV Peak Adam 1.4 m/sec LVIDd 2D 3.9 3.5 - 5.6 cm AV Peak PG 8.2 mmHg LVIDs 2D 2.9 2.1 - 4.1 cm LVOT Peak Adam 0.9 m/sec LVPWd 2D 1.5 0.6 - 1.1 cm LVOT Peak PG 3.5 mmHg IVSd 2D 1.6 0.6 - 1.1 cm MV E Peak Adam 0.7 m/sec EDV 2D 65.1 cm3 MV A Peak Adam 1.1 m/sec ESV 2D 23.3 cm3 MV E/A 0.6 LA Dimen 2D 3.6 2.3 - 4.0 cm MV Decel Time 311 msec MV Decel [place] 2 MV E/A 0.6 PV Peak Adam 1.2 m/sec PV Peak PG 6.0 mmHg Findings Left Ventricle: Normal left ventricular systolic function. Normal left ventricular cavity size. Mild concentric left ventricular hypertrophy. Ejection fraction is visually estimated at 60 %. Tissue Doppler/Mitral Doppler indices are consistent with impaired relaxation (Stage I diastolic dysfunction). E/E`=8. Right Ventricle: Normal right ventricular size. Normal right ventricular systolic function. Left Atrium: The left atrium is normal in size. Right Atrium: The right atrium is normal in size. Atrial Septum: Normal atrial septum. Mitral Valve: Mitral valve leaflets appear mildly thickened. Mild mitral annular calcification. Trace mitral regurgitation. Aortic Valve: No hemodynamically significant aortic stenosis by doppler. Aortic cusps appear mildly calcified. Trileaflet aortic valve. No aortic regurgitation. Tricuspid Valve: Normal appearance and function of the tricuspid valve with trace physiologic regurgitation. Pulmonic Valve: Normal pulmonic valve appearance. There is trace pulmonic regurgitation. Pericardium: Normal pericardium with no significant pericardial effusion. No pleural effusion noted. Aorta: Normal aortic root. IVC: Normal size and normal respiratory collapse consistent with normal right atrial pressure. Pulmonary Artery: Normal pulmonary artery size. Conclusions 1.Normal left ventricular systolic function. Normal left ventricular cavity size. Mild concentric left ventricular hypertrophy. Ejection fraction is visually estimated at 60 %. Tissue Doppler/Mitral Doppler indices are consistent with impaired relaxation (Stage I diastolic dysfunction). E/E`=8. 2.Mitral valve leaflets appear mildly thickened. Mild mitral annular calcification. Trace mitral regurgitation. 3.Normal appearance and function of the tricuspid valve with trace physiologic regurgitation. 4.No hemodynamically significant aortic stenosis by doppler. Aortic cusps appear mildly calcified. Trileaflet aortic valve. No aortic regurgitation. Electronically Signed By: Chang Quezada 25-Apr-2017 15:56:08 -0700 Patient Name: KAIA SUGGS Study Date: 24-Apr-2017 [id number]
[2017-04-25] MEDS ORDERED: LEVOFLOXACIN 750MG/D5W (PMX) 150 ML IVPB SCH (20:00)
[2017-04-25] MEDS: LATANOPROST 0.005% 2.5 ML OPH BOTH EYES SCH (20:36)
[2017-04-25] MEDS: ATORVASTATIN 40 MG TAB PO SCH (20:37)
[2017-04-26] VITALS (9 sets, daily range): BP systolic 96–143; BP diastolic 55–79; PULSE 62–66; RESP 14–18
[2017-04-26] MEDS: ALBUTEROL/IPRATROPIUM (NEB) 3 ML AMP HHN SCH ×3 (02:00→13:59)
[2017-04-26] MEDS: ACCU-CHEK XX SCH (02:01)
[2017-04-26 06:28] LABS: ADD SCAN DIFF NO
[2017-04-26 06:35] LABS: ABNORMAL IP MESSAGE 1; MEAN CORPUSCULAR HEMOGLOBIN 31.9 pg (29.0-33.0); MEAN CORPUSCULAR HGB CONC 31.7 g/dl (32.0-37.0); MEAN CORPUSCULAR VOLUME 100.7 fl (82.0-101.0); MEAN PLATELET VOLUME 13.2 fl (7.4-10.4); PLATELET COUNT 149 10^3/UL (140-415); RED BLOOD COUNT 4.07 10^6/ul (4.70-6.10); RED CELL DISTRIBUTION WIDTH 13.1 % (11.5-14.5); WHITE BLOOD COUNT 27.2 10^3/ul (4.8-10.8)
[2017-04-26] MEDS: METHYLPREDNISOLONE 40 MG INJ IV SCH ×2 (06:36→14:00)
[2017-04-26] MEDS: FUROSEMIDE 20 MG INJ IV SCH (06:36)
[2017-04-26 07:02] LABS: CALCIUM 9.2 mg/dl (8.4-10.2); CREATININE 2.01 mg/dl (0.61-1.24); POTASSIUM 4.7 mmol/L (3.5-5.1)
--- NOTE | 2017-04-26 07:42 | CONS ---
DATE OF ADMISSION: 04/23/2017 DATE OF CONSULTATION: 04/25/2017 REFERRING PHYSICIAN: Stevo Georges MD REASON FOR EVALUATION: Shortness of breath. HISTORY OF PRESENT ILLNESS: Mr. Milligan is an 82-year-old gentleman seen by Dr. Rodriguez prior wi th a history of hypertension, dyslipidemia, coronary artery disease, prior history of PTCA stent ___ __ vessel, history of heart failure with unknown ejection fraction, comes to the hospital now for ev aluation of shortness of breath. The patient's son states that his primary senior treasury consultant is Dr. Avi harris at [facility]. Apparently the patient had prior evaluation, he had a stress test more than 3 years ago and now feels short of breath. The patient bronchitis and he has some degree of fluid overloa d. For now, the plan is to continue diuresis. The patient will have a 2-D echo to establish ejecti on fraction. I did not appreciate an EKG in the chart, but he does appear to be in sinus rhythm at this moment. According to the son, the patient was on Coumadin before, but he is not on Coumadin an ymore. For now, conservative therapy is expected. We will continue to treat the patient and we darnell l see if recent risk stratification , if not, we will consider further stress test as an inpati ent or outpatient. PAST MEDICAL HISTORY: Hypertension, dyslipidemia, history of coronary artery disease, history of pr ior stenting, history of cardiac arrhythmia, unknown to me, history of heart failure with unknown to me ejection fraction. SOCIAL HISTORY: The patient does not smoke, does not drink, does not use any drugs. FAMILY HISTORY: Negative for sudden cardiac or premature coronary artery disease. There is h istory of in his family. ALLERGIES: ROCEPHIN AND VANCOMYCIN. MEDICATIONS: Current medications include: 1. Levofloxacin. 2. Insulin sliding scale. 3. Lasix 20 mg p.o. every 6 hours. 4. and calcium. 5. Lipitor. 4. Albuterol. 5. Aspirin. 6. Timolol drops. 7. Spirolactone 25 b.i.d. 8. Dextrose. 9. Acetaminophen. 10. Docusate. REVIEW OF SYSTEMS: CONSTITUTIONAL: No fevers, chills, shortness of breath. HEENT: No changes in vision or hearing. CARDIAC: No chest pain reported now. RESPIRATORY: Shortness of breath, . GASTROINTESTINAL: No nausea, vomiting, diarrhea, constipation. GENITOURINARY: No dysuria, hematuria, . NEUROLOGIC: No focal neurologic deficits. PSYCHIATRIC: . PHYSICAL EXAMINATION: VITAL SIGNS: Temperature is , heart rate 65, blood pressure . GENERAL: An elderly gentleman in no acute distress, alert and oriented x3, aware of his condition. HEENT: Normocephalic, atraumatic. Eyes anicteric. NECK: Supple. JVD elevated to 8 cm. There is no lymphadenopathy. HEART: Regular with soft holosystolic murmur mid chest. PMI displaced leftward. LUNGS: Coarse at bases. ABDOMEN: Distended, bowel sounds are present. There is no hepatosplenomegaly. GENITOURINARY: Grossly intact. EXTREMITIES: Show no cyanosis, trace edema. SKIN: NEUROLOGICAL: He is able to move his extremities. LABORATORY DATA: White blood cell count 23.9, hemoglobin is 12.8, platelets 139. INR is 1.83, crea tinine is 1.96. His troponin was 0.012 on presentation. IMAGING: Chest x-ray shows diffuse interstitial marking without any clear fluid appreciated. ECG not available, but I am going to order one shortly. ASSESSMENT AND PLAN: 1. Shortness of breath, likely multifactorial. The patient might be with a COPD exacerbation. We will obtain a 2D echo to establish ejection fraction and follow . The patient already ruled ou t for acute myocardial infarction. 2. Coronary artery disease. The patient has history of coronary artery disease. Troponins are neg ative. Will consider risk stratification with a stress test inpatient versus outpatient. 3. History of cardiac arrhythmia. reports on patient's cardiac arrhythmia. The son says his father is not on Coumadin anymore, but INR is elevated, will try to investigate. No obvious signs of bleeding now. 4. Acute renal failure. Creatinine is elevated. Continue to avoid nephrotoxic medications. 5. Diabetes. Continue diabetic optimization care. I would like to thank Dr. Georges for referring this patient for my evaluation. Dictated By: DAVID MCKENZIE/EDENILSON Conf#: [id number] DID#: [id number]
[2017-04-26 07:45] LABS: LYMPHOCYTES # 1.9 10^3/ul (0.8-2.9); MONOCYTE # 1.1 10^3/ul (0.3-0.9); NEUTROPHIL # 24.2 10^3/ul (1.6-7.5)
[2017-04-26 07:46] LABS: PLATELET ESTIMATE PLT APPEAR DECREASED; POLYCHROMASIA 3+
[2017-04-26] MEDS: INSULIN GLARGINE [LANtus] 3 ML PEN SC SCH (07:55)
[2017-04-26] MEDS: INSULIN ASPART [NOVOLOG] 3 ML PEN SC SCH ×4 (07:55→12:13)
--- NOTE | 2017-04-26 07:55 | CONS ---
Date/Time of Note Date/Time of Note DATE: 04/26/17 TIME: 07:52 Assessment/Plan Assessment/Plan Additional Assessment/Plan 1. Shortness of breath, likely multifactorial. The patient might be with a COPD exacerbation. 2. CHf - diast HF - ECHO done - EF 55% - acute on chronic, better now. The patient already ruled out for acute myocardial infarction. 2. Coronary artery disease. The patient has history of coronary artery disease. Troponins are negative. Pt/son do not want stress test - will go back to DR. Pyle at [facility] for w/up. 3. History of cardiac arrhythmia. No new episodes here. The son says his father is not on Coumadin anymore, but INR is elevated, will try to investigate. No obvious signs of bleeding now. 4. Acute renal failure. Creatinine is elevated. Continue to avoid nephrotoxic medications. 5. Diabetes. Continue diabetic optimization care. Consultation Date/Type/Reason Admit Date/Time Apr 23, 2017 at 21:30 Initial Consult Date 24 HR Interval Summary Free Text/Dictation NO acute change - pt feels better - improved SOB, no sign ectopy on tele. ROS: No fever, no chills, no nausea, no vomiting, no diarrhea/constipation No recent weight changes No chest pain, no PND, no orthopnea, SOB better No dizziness, blurred vision No thirst, no heat or cold intolerance Exam/Review of Systems Vital Signs Vitals Vital Signs Date Time Temp Pulse Resp B/P Pulse Ox O2 Delivery O2 Flow Rate FiO2 04/26/17 07:25 97.7 64 14 115/62 93 04/26/17 04:06 Nasal Cannula 2.0 04/24/17 16:07 28 Intake and Output 04/25/17 04/25/17 04/26/17 15:00 23:00 07:00 Intake Total 1250 ml 360 ml Balance 1250 ml 360 ml Exam General: WN/WD/NAD, AOx 3 HEENT: Unicetric/atraumatic/EOMI (follow commands) NECK: JVD elevated, no thyromegaly Lymph: no lymphadenopathy HEART: regular with no S3, II/ systolic murmur at apex LUNGS: Coarse sounds, some wheezing ABD: soft, NT, ND, +BS : Intact Neuro: non focal SKIN: chronic changes EXT: trace edema Results Result Diagram: 04/26/17 0559 04/26/17 0559 Results 24 hrs Laboratory Tests Test 04/25/17 12:04 04/25/17 17:16 04/25/17 20:42 04/26/17 01:32 Bedside Glucose 248 H 238 H 299 H 222 H Test 04/26/17 05:59 White Blood Count 27.2 H Red Blood Count 4.07 L Hemoglobin 13.0 L Hematocrit 41.0 L Mean Corpuscular Volume 100.7 Mean Corpuscular Hemoglobin 31.9 Mean Corpuscular Hemoglobin Concent 31.7 L Red Cell Distribution Width 13.1 Platelet Count 149 Mean Platelet Volume 13.2 H Neutrophils % 89.0 H Lymphocytes % 7.0 L Monocytes % 4.0 Neutrophils # 24.2 H Lymphocytes # 1.9 Monocytes # 1.1 H Platelet Estimate PLT APPEAR DECREASED Polychromasia 3+ Sodium Level 141 Potassium Level 4.7 Chloride Level 103 Carbon Dioxide Level 30 Anion Gap 13 Blood Urea Nitrogen 77 H Creatinine 2.01 H Glucose Level 193 Calcium Level 9.2 Medications Medications Current Medications Ondansetron HCl (Zofran Inj) 4 mg Q6H PRN IV NAUSEA AND/OR VOMITING; Start at 00:30 Acetaminophen (Tylenol Tab) 650 mg Q6H PRN PO PAIN LEVEL 1-3 OR FEVER; Start at 00:30 Acetaminophen/ Hydrocodone Bitart ([place] (5/325)) 1 tab Q6H PRN PO MODERATE PAIN LEVEL 4-6; Start 04/24/17 at 00:30 Morphine Sulfate (morphine) 2 mg Q4H PRN IV SEVERE PAIN LEVEL 7-10; Start 04/24 at 00:30 Docusate Sodium (Colace) 100 mg Q12H PRN PO CONSTIPATION; Start 04/24/17 at 00: 30 Zolpidem Tartrate (Ambien) 5 mg QHS PRN PO SLEEP; Start 04/24/17 at 00:30 Aspirin (Halfprin) 81 mg DAILY PO Last administered on 04/25/17 08:09; Admin Dose 81 MG; Start 04/24/17 at 09:00 Brimonidine/ Timolol (Combigan Oph) 1 drop BID BOTH EYES Last administered on 20:39; Admin Dose 1 DROP; Start 04/24/17 at 09:00 Dorzolamide/ Timolol (Cosopt) 1 drop BID BOTH EYES Last administered on 20:40; Admin Dose 1 DROP; Start 04/24/17 at 09:00 Insulin Glargine (Lantus) 42 unit QAM SC Last administered on 04/25/17 07:53; Admin Dose 42 UNIT; Start 04/24/17 at 09:00 Latanoprost (Xalatan) 1 drop QHS BOTH EYES Last administered on 04/25/17 20:36 ; Admin Dose 1 DROP; Start 04/24/17 at 21:00 Spironolactone (Aldactone) 25 mg DAILY PO Last administered on 04/25/17 08:09 ; Admin Dose 25 MG; Start 04/24/17 at 09:00 Atorvastatin Calcium 40 mg 40 mg DAILY@21 PO Last administered on 04/25/17 20: 37; Admin Dose 40 MG; Start 04/24/17 at 21:00 Levofloxacin/ Dextrose (Levaquin 750 Mg/ D5W 150 ml (Pmx)) 150 ml @ 100 mls/hr Q48H IVPB Last administered on 04/25/17 20:22; Admin Dose 100 MLS/HR; Start at 20:00 Diagnostic Test (Pha) (Accu-Chek) 1 ea 02 XX Last administered on 04/26/17 02: 01; Admin Dose 1 EA; Start 04/24/17 at 02:00 Miscellaneous Information 1 ea NOTE XX ; Start 04/24/17 at 01:00 Glucose (Glutose) 15 gm Q15M PRN PO DECREASED GLUCOSE; Start 04/24/17 at 01:00 Glucose (Glutose) 22.5 gm Q15M PRN PO DECREASED GLUCOSE; Start 04/24/17 at 01: 00 Dextrose (D50w Syringe) 25 ml Q15M PRN IV DECREASED GLUCOSE; Start 04/24/17 at 01:00 Dextrose (D50w Syringe) 50 ml Q15M PRN IV DECREASED GLUCOSE; Start 04/24/17 at 01:00 Glucagon (Glucagen) 1 mg Q15M PRN IM DECREASED GLUCOSE; Start 04/24/17 at 01:00 Glucose (Glutose) 15 gm Q15M PRN BUCCAL DECREASED GLUCOSE; Start 04/24/17 at 01 :00 Furosemide (Lasix) 20 mg DAILY@06 IV Last administered on 04/26/17 06:36; Admin Dose 20 MG; Start 04/25/17 at 06:00 Promethazine HCl/ Codeine (Phenergan/ Codeine) 5 ml Q4H PRN PO COUGH; Start at 12:30 Methylprednisolone Sodium Succinate (Solu-Medrol) 20 mg Q8 IV Last administered on 04/26/17 06:36; Admin Dose 20 MG; Start 04/24/17 at 14:00 DAVID CANCINO MD Apr 26, 2017 07:54
[2017-04-26] MEDS: BRIMONIDINE 0.2%-TIMOLOL 0.5% 5ML OPH BOTH EYES SCH (08:20)
[2017-04-26] MEDS: SPIRONOLACTONE 25 MG TAB PO SCH (08:20)
[2017-04-26] MEDS: ASPIRIN (EC) 81 MG TAB PO SCH (08:20)
[2017-04-26] MEDS: DORZOLAMIDE/TIMOLOL 10 ML OPH BOTH EYES SCH (08:20)
--- NOTE | 2017-04-26 11:24 | PN ---
Date/Time of Note Date/Time of Note DATE: 04/26/17 TIME: 11:15 Assessment/Plan VTE Prophylaxis VTE Prophylaxis Intervention: SCD's Lines/Catheters [facility]from [facility] Saline Lock Urinary Cath still in place: No Assessment/Plan Assessment/Plan 1. Acute respiratory distress 2/2 bilateral PNA and COPD exacerbation - improved 2. Acute COPD Exacerbation: improved 3. Diastolic heart failure (acute) with preserved EF 2. NIRMALA on CKD III: stable / ?baseline 3. Hyponatremia 4. Hypertension. Continue home medications. 5. Diabetes type 2 : hemoglobin A1c was 7.8. 6. Glaucoma. Continue home medications. 7. Dyslipidemia. on Statin Plan: * Patient has refused further cardiac intervention and has ruled out for acute coronary event / continued on gentle diuresis * Continue scheduled and as needed bronchodilator therapy as well as empiric antibiotics * Glycemic control is improving and was likely suboptimal secondary to steroids / continue current regimen * Goals of care would be improved respiratory status and mild improvement in WBC range and possible discharge for outpatient follow-up with patients on cafeteria cook * Prophylaxis. SCDs. Subjective 24 Hr Interval Summary Constitutional: improved, no complaints Exam/Review of Systems Vital Signs Vitals Vital Signs Date Time Temp Pulse Resp B/P Pulse Ox O2 Delivery O2 Flow Rate FiO2 04/26/17 08:13 Nasal Cannula 2.0 04/26/17 08:09 66 20 97 04/26/17 07:25 97.7 115/62 04/24/17 16:07 28 Intake and Output 04/25/17 04/25/17 04/26/17 15:00 23:00 07:00 Intake Total 1250 ml 360 ml Balance 1250 ml 360 ml Exam Constitutional: alert, oriented Head: normocephalic Eyes: PERRL ENMT: mucosa pink and moist Neck: supple Respiratory: clear to auscultation, diminished breath sounds Cardiovascular: regular rate and rhythm Gastrointestinal: bowel sounds, non-tender, soft Extremities: No edema Neurological: nl mental status Results Result Diagram: 04/26/17 0559 04/26/17 0559 Results 24 hrs Laboratory Tests Test 04/25/17 12:04 04/25/17 17:16 04/25/17 20:42 04/26/17 01:32 Bedside Glucose 248 H 238 H 299 H 222 H Test 04/26/17 05:59 04/26/17 07:42 White Blood Count 27.2 H Red Blood Count 4.07 L Hemoglobin 13.0 L Hematocrit 41.0 L Mean Corpuscular Volume 100.7 Mean Corpuscular Hemoglobin 31.9 Mean Corpuscular Hemoglobin Concent 31.7 L Red Cell Distribution Width 13.1 Platelet Count 149 Mean Platelet Volume 13.2 H Neutrophils % 89.0 H Lymphocytes % 7.0 L Monocytes % 4.0 Neutrophils # 24.2 H Lymphocytes # 1.9 Monocytes # 1.1 H Platelet Estimate PLT APPEAR DECREASED Polychromasia 3+ Sodium Level 141 Potassium Level 4.7 Chloride Level 103 Carbon Dioxide Level 30 Anion Gap 13 Blood Urea Nitrogen 77 H Creatinine 2.01 H Glucose Level 193 Calcium Level 9.2 Bedside Glucose 189 Medications Medications Current Medications Ondansetron HCl (Zofran Inj) 4 mg Q6H PRN IV NAUSEA AND/OR VOMITING; Start at 00:30 Acetaminophen (Tylenol Tab) 650 mg Q6H PRN PO PAIN LEVEL 1-3 OR FEVER; Start at 00:30 Acetaminophen/ Hydrocodone Bitart ([place] (5/325)) 1 tab Q6H PRN PO MODERATE PAIN LEVEL 4-6; Start 04/24/17 at 00:30 Morphine Sulfate (morphine) 2 mg Q4H PRN IV SEVERE PAIN LEVEL 7-10; Start 04/24 at 00:30 Docusate Sodium (Colace) 100 mg Q12H PRN PO CONSTIPATION; Start 04/24/17 at 00: 30 Zolpidem Tartrate (Ambien) 5 mg QHS PRN PO SLEEP; Start 04/24/17 at 00:30 Aspirin (Halfprin) 81 mg DAILY PO Last administered on 04/26/17 08:20; Admin Dose 81 MG; Start 04/24/17 at 09:00 Brimonidine/ Timolol (Combigan Oph) 1 drop BID BOTH EYES Last administered on 08:20; Admin Dose 1 DROP; Start 04/24/17 at 09:00 Dorzolamide/ Timolol (Cosopt) 1 drop BID BOTH EYES Last administered on 08:20; Admin Dose 1 DROP; Start 04/24/17 at 09:00 Insulin Glargine (Lantus) 42 unit QAM SC Last administered on 04/26/17 07:55; Admin Dose 42 UNIT; Start 04/24/17 at 09:00 Latanoprost (Xalatan) 1 drop QHS BOTH EYES Last administered on 04/25/17 20:36 ; Admin Dose 1 DROP; Start 04/24/17 at 21:00 Spironolactone (Aldactone) 25 mg DAILY PO Last administered on 04/26/17 08:20 ; Admin Dose 25 MG; Start 04/24/17 at 09:00 Atorvastatin Calcium 40 mg 40 mg DAILY@21 PO Last administered on 04/25/17 20: 37; Admin Dose 40 MG; Start 04/24/17 at 21:00 Levofloxacin/ Dextrose (Levaquin 750 Mg/ D5W 150 ml (Pmx)) 150 ml @ 100 mls/hr Q48H IVPB Last administered on 04/25/17 20:22; Admin Dose 100 MLS/HR; Start at 20:00 Diagnostic Test (Pha) (Accu-Chek) 1 ea 02 XX Last administered on 04/26/17 02: 01; Admin Dose 1 EA; Start 04/24/17 at 02:00 Miscellaneous Information 1 ea NOTE XX ; Start 04/24/17 at 01:00 Glucose (Glutose) 15 gm Q15M PRN PO DECREASED GLUCOSE; Start 04/24/17 at 01:00 Glucose (Glutose) 22.5 gm Q15M PRN PO DECREASED GLUCOSE; Start 04/24/17 at 01: 00 Dextrose (D50w Syringe) 25 ml Q15M PRN IV DECREASED GLUCOSE; Start 04/24/17 at 01:00 Dextrose (D50w Syringe) 50 ml Q15M PRN IV DECREASED GLUCOSE; Start 04/24/17 at 01:00 Glucagon (Glucagen) 1 mg Q15M PRN IM DECREASED GLUCOSE; Start 04/24/17 at 01:00 Glucose (Glutose) 15 gm Q15M PRN BUCCAL DECREASED GLUCOSE; Start 04/24/17 at 01 :00 Furosemide (Lasix) 20 mg DAILY@06 IV Last administered on 04/26/17 06:36; Admin Dose 20 MG; Start 04/25/17 at 06:00 Promethazine HCl/ Codeine (Phenergan/ Codeine) 5 ml Q4H PRN PO COUGH; Start at 12:30 Methylprednisolone Sodium Succinate (Solu-Medrol) 20 mg Q8 IV Last administered on 04/26/17t 06:36; Admin Dose 20 MG; Start 04/24/17 at 14:00 GEMMA LESTER Apr 26, 2017 11:23
[2017-04-26] MEDS ORDERED: LACT1CAP57 PO (13:38)
[2017-04-26] MEDS ORDERED: IPRA4AER INHALATION (13:38)
[2017-04-26] MEDS ORDERED: LEVO750T25 PO (13:38)
[2017-04-26] MEDS ORDERED: PRED10TA PO (13:38)
[2017-04-26] MEDS ORDERED: ADV10050 INHALATION (13:38)
--- NOTE | 2017-04-26 17:32 | DS ---
Date/Time of Note Date/Time of Note DATE: 04/26/17 TIME: 17:27 Discharge Summary Admission/Discharge Info Admit Date/Time Apr 23, 2017 at 21:30 Discharge Date/Time April 26, 2017 . Discharge Diagnosis 1. Acute respiratory distress 2/2 bilateral PNA and COPD exacerbation - significantly improved 2. Acute COPD Exacerbation: Resolved 3. Diastolic heart failure (acute) with preserved EF compensated: 2. NIRMALA on CKD III: stable / ?baseline 3. Hyponatremia : Improved 4. Hypertension. Continue home medications. 5. Diabetes type 2 : hemoglobin A1c was 7.8. 6. Glaucoma. Continue home medications. 7. Dyslipidemia. on Statin Patient Condition: Stable Consults * Cardiology : [facility] Course 82-year-old maleWho had presented to emergency roomJune 24 with cough and shortness of breath and was found to have a COPD exacerbation with chest x-ray concerning for probable bilateral pneumonia versus CHF. He was admitted and gently diuresed, also treated with intravenous steroids and scheduled bronchodilator therapy for COPD. He did very well. Initially upon admission because of mild elevation in his kidney function his losartan and hydrochlorothiazide were held however this seems to be patient's baseline. Patient was seen earlier today and the took off his oxygen therapy and a few hours later he still not requiring. The patient and his son are requesting discharge. He does have a steroid-induced leukocytosis, which I think will fall once is off steroids and as such I am okay with discharging patient. Patient is encouraged to follow-up with his primary care physician within a week for repeat lab work and he sees with, for pulmonary and he has promised to follow-up with him as soon as possible as well. 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 Comorbidities were also aggressively managed as per Med records. Patient at this time has been evaluated and examined in detail and is assessed to be in stable condition and ready for discharge. . Home Meds Active Scripts Prednisone* (Prednisone*) 10 Mg Tab, 10 MG PO DAILY, #16 TAB take 5 pills tomorrow take 4 pills on the next day take 3 pills on the next day take 2 pills on the next day take 1 pill on the next day then stop Prov:GEMMA LESTER 04/26/17 Lactobacillus Rhamnosus* (Culturelle*) 1 Each Cap.sprink, 1 CAP PO BID for 7 Days, CAP Prov:GEMMA LESTER. 04/26/17 Levofloxacin* (Levaquin*) 750 Mg Tablet, 750 MG PO Q48H for 7 Days, #3 TAB Prov:GEMMA LESTER. 04/26/17 Salmeterol Xinaf-Fluticasone* (Advair*) 100/50 Diskus Inhaler, 1 INH INHALATION BID, #1 INHALER Prov:GEMMA LESTER. 04/26/17 Albuterol/Ipratropium* (Combivent Respimat*) 20-100 Mcg/Inh - 4 Gm Aer.w.adap, 2 PUFF INHALATION Q4 Y for SHORTNESS OF BREATH, #1 INHALER 2 Refills Prov:GEMMA LESTER. 04/26/17 Reported Medications Furosemide* (Furosemide*) 40 Mg Tablet, 40 MG PO DAILY, TAB 04/23/17 Insulin Glargine* (Lantus*) 100 Unit/Ml Soln, 42 UNIT SC QAM, #1 VIAL 04/23/17 Losartan-Hydrochlorothiazide (Losartan-HCTZ) 100-25 Mg Tab, 1 TAB PO DAILY, TAB 04/23/17 Aspirin* (Aspirin* EC) 81 Mg Tablet.dr, 81 MG PO DAILY, TAB 04/23/17 Rosuvastatin Calcium* (Crestor*) 10 Mg Tablet, 10 MG PO QHS, #30 TAB 04/23/17 Spironolactone* (Aldactone*) 25 Mg Tablet, 25 MG PO DAILY, #30 TAB 04/23/17 Brimonidine/Timolol* (Combigan*) 5 Ml Drops, 1 DROP BOTH EYES BID, BOTTLE 04/23/17 Dorzolamide-Timolol* (Cosopt*) 2%-0.5% - 10 Ml Soln, 1 DROP BOTH EYES BID, BOTTLE 04/23/17 Latanoprost (Latanoprost) 2.5 Ml Drops, 1 DROP BOTH EYES QHS, #1 BOTTLE 04/23/17 Discontinued Reported Medications Furosemide (Lasix) 40 Mg Tab, 40 MG PO EVERY OTHER DAY, TAB 12/25/13 Aspirin Ec (Aspir 81) 81 Mg Tablet.dr, 81 MG PO DAILY 12/25/13 Brimonidine/Timolol* (Combigan*) 10 Ml Drops 09/20/10 Bimatoprost (Lumigan) 2.5 Ml Drops 09/20/10 Insulin Glargine,Hum.rec.anlog (Lantus) 100 U/Ml Vial 09/20/10 Losartan Potassium* (Cozaar*) 100 Mg Tablet 09/20/10 Rosuvastatin Calcium* (Crestor*) 10 Mg Tablet 09/20/10 Follow-up Plan See hospital course. . Primary Care Provider Bentley Mckeon Time spent on discharge: > 30 minutes Pending Labs Laboratory Tests Test 04/25/17 20:42 04/26/17 01:32 04/26/17 05:59 04/26/17 07:42 Bedside Glucose 299mg/dL (70-220) 222mg/dL (70-220) 189mg/dL (70-220) White Blood Count 27.210^3/ul (4.8-10.8) Red Blood Count 4.0710^6/ul (4.70-6.10) Hemoglobin 13.0g/dl (14.0-18.0) Hematocrit 41.0% (42.0-52.0) Mean Corpuscular Volume 100.7fl (82.0-101.0) Mean Corpuscular Hemoglobin 31.9pg (29.0-33.0) Mean Corpuscular Hemoglobin Concent 31.7g/dl (32.0-37.0) Red Cell Distribution Width 13.1% (11.5-14.5) Platelet Count 17664^3/UL (140-415) Mean Platelet Volume 13.2fl (7.4-10.4) Neutrophils % 89.0% (39.0-77.0) Lymphocytes % 7.0% (15.0-51.0) Monocytes % 4.0% (0.0-11.0) Neutrophils # 24.210^3/ul (1.6-7.5) Lymphocytes # 1.910^3/ul (0.8-2.9) Monocytes # 1.110^3/ul (0.3-0.9) Platelet Estimate PLT APPEAR DECREASED Polychromasia 3+ Sodium Level 141mmol/L (135-144) Potassium Level 4.7mmol/L (3.5-5.1) Chloride Level 103mmol/L (97-110) Carbon Dioxide Level 30mmol/L (21-31) Anion Gap 13 (8-16) Blood Urea Nitrogen 77mg/dl (7-20) Creatinine 2.01mg/dl (0.61-1.24) Glucose Level 193mg/dl (70-220) Calcium Level 9.2mg/dl (8.4-10.2) Test 04/26/17 12:08 Bedside Glucose 201mg/dL (70-220) GEMMA LESTER Apr 26, 2017 17:32
== END 2017-04-26 16:15 | disposition home or self-care (01) | DRG 291 ==
LOC: E/R 16:41 → TEL 21:30
PROVIDERS: ADMIT Internal Medicine; ATTEND Internal Medicine
PROC: 3E0F73Z Introduction of Anti-inflammatory into Respiratory Tract, Via Natural or Artificial Opening (ICD-10-PCS; principal; 2017-04-23)
DX: I50.33 Acute on chronic diastolic (congestive) heart failure (principal); J18.9 Pneumonia, unspecified organism; N17.9 Acute kidney failure, unspecified; R06.00 Dyspnea, unspecified; J44.1 Chronic obstructive pulmonary disease with (acute) exacerbation; E11.22 Type 2 diabetes mellitus with diabetic chronic kidney disease; N18.3 Chronic kidney disease, stage 3 (moderate); I13.0 Hypertensive heart and chronic kidney disease with heart failure and stage 1 through stage 4 chronic kidney disease, or unspecified chronic kidney disease; E87.1 Hypo-osmolality and hyponatremia; H40.9 Unspecified glaucoma; E78.5 Hyperlipidemia, unspecified; I25.10 Atherosclerotic heart disease of native coronary artery without angina pectoris; Z79.4 Long term (current) use of insulin; Z79.82 Long term (current) use of aspirin
CPT/HCPCS: 36415; 36600; 71010; 80048; 80053; 81001; 82803; 82962; 83036; 83690; 83735; 83880; 84100; 84484; 85025; 87040; 87400; 93005; 93306; 94640; 94644; 94664; 96374; 96375; J1940; J0456; J1815; J1956; J2920; J2930; J7030

== ENCOUNTER 2017-11-01 12:55 | Inpatient (IN) | END 2017-11-06 11:32 | disposition home or self-care (01) | DRG 291 ==

== ENCOUNTER 2017-11-30 11:44 | Inpatient (IN) | END 2017-12-02 13:35 | disposition home or self-care (01) | DRG 602 ==

== ENCOUNTER 2018-06-13 06:44 | Day surgery (SDC) | END 2018-06-13 11:35 | disposition home or self-care (01) ==